=== PATIENT | female | born 1975 | race Caucasian/White ===

== ENCOUNTER 2020-08-16 16:01 | Emergency (ER) | payer OTHER, SELFPAY ==
[2020-08-16 16:17] VITALS: BP 113/64; PULSE 79; RESP 20; TEMP 36.8; O2SAT 97
[2020-08-16 16:55] LABS: INR 1.1 (0.9-1.3); Prothrombin Time 12.1 SECONDS (10.1-12.7)
[2020-08-16 16:57] LABS: Add Manual Diff / Slide Review NO; Basophils Absolute Auto 0 /uL (0-100); Basophils Percent Auto 0.6 % (0-2); Eosinophils Absolute Auto 0 /uL (0-450); Eosinophils Percent Auto 0.5 % (2-4); Hemoglobin 13.5 g/dL (12.0-16.0); Lymphocytes Absolute Auto 1400 /uL (1100-4500); Lymphocytes Percent Auto 24.8 % (25-40); Mean Corpuscular HGB Conc 33.7 % (30-36); Mean Corpuscular Hemoglobin 29.9 PG (26-34); Mean Corpuscular Volume 88.9 fL (80-100); Monocytes Absolute Auto 300 /uL (0-900); Monocytes Percent Auto 4.7 % (3-14); Neutrophils Absolute Auto 3900 /uL (1500-7000); Neutrophils Percent Auto 69.4 % (50-75); PTT Partial Thromboplastin Tim 31 SECONDS (26.4-36.2); Platelet Count 265 X10^3/uL (150-400); Red Cell Distribution Width 12.9 % (11.6-14.8); White Blood Cell Count 5.7 X10^3/uL (4.5-11.0)
[2020-08-16 17:01] LABS: Alanine Aminotransferase 13 IU/L (<35); Albumin 4.4 g/dL (3.5-5.0); Albumin Globulin Ratio 1.8 (1.0-2.8); Alkaline Phosphatase 40 U/L (38-126); Aspartate Aminotransferase 21 IU/L (14-36); BUN Creatinine Ratio 11.3 (6-22); Bilirubin Total 0.9 mg/dL (0.2-1.3); Blood Urea Nitrogen 8 mg/dL (7-17); Calcium 9.4 mg/dL (8.4-10.2); Carbon Dioxide 27 mmol/L (22-32); Chloride 106 mmol/L (98-107); Estimated Glomerular Filt Rate > 60.0 mL/min (>60); Globulin 2.4 g/dL (1.7-4.1); Glucose 108 mg/dL (70-100); HEMOLYSIS < 15 (0-50); Lipase 57 U/L (23-300); Potassium 3.8 mmol/L (3.4-5.1); Sodium 136 mmol/L (137-145); Total Protein 6.8 g/dL (6.3-8.2)
[2020-08-16 17:59] VITALS: BP 101/57; PULSE 66; RESP 18; O2SAT 100
--- NOTE | 2020-08-16 19:27 | ED.ABDPAIN ---
HPI - Abdominal Pain General Chief Complaint: Abdominal Pain Stated Complaint: Lump On Lower Ribs, Upper Abd Pain, Nausea 2wks Time Seen by Provider: 08/16/20 18:02 Source: patient Mode of arrival: Ambulatory Limitations: no limitations History of Present Illness HPI narrative: 45-year-old female former smoker with history of reflux presents with a chief complaint of about 2 weeks of epigastric pain with radiation to her back. She states her pain is achy and crampy in nature and seems to be made worse by eating and drinking. She has nausea but denies any vomiting. She has had no fever chills and denies any jaundice. She has had no recent travel or injury. Patient is not dizzy nor weak or lightheaded. She has had no change in bowel habits. She denies dysuria, frequency or urgency. She has discussed her symptoms with her PCP and was directed to the ED, and suggested she wanted her to get a CT. Patient states the symptoms are quite similar to an episode she had a few years ago in which she was told she had ulcers. She had been taking antacids but stopped taking them sometime ago MD complaint: abdominal pain Onset (ago): week(s) Pain Consistency: intermittent Location: epigastric Severity: moderate Quality: cramping and aching Radiation: back Exacerbating factors: eating and movement Associated symptoms: nausea Related Data Previous Rx's Medication Instructions Recorded pantoprazole [Protonix] 40 mg PO DAILY #30 tab 08/16/20 Allergies Allergy/AdvReac Type Severity Reaction Status Date / Time lanolin [LANOLIN] Allergy Unknown Unverified 09/11/17 12:24 latex [LATEX] Allergy Unknown Unverified 09/11/17 12:24 Review of Systems Constitutional Constitutional: Denies chills, Denies fatigue, Denies fever(s), Denies frequent falls, Denies lethargy and Denies weakness Eyes Eyes: Denies change in vision, Denies eye discharge, Denies irritation and Denies loss of vision ENT Ears, Nose, Mouth, and Throat: Denies change in voice, Denies dizziness, Denies neck pain, Denies sore throat and Denies throat swelling Cardiovascular Cardiovascular: Denies chest pain, Denies irregular heart rhythm, Denies lightheadedness, Denies palpitations, Denies dyspnea, Denies dyspnea on exertion and Denies orthopnea Respiratory Respiratory: Denies cough, Denies dyspnea, Denies dyspnea on exertion and Denies wheezing Gastrointestinal Gastrointestinal: Reports abdominal pain, Denies change in bowel habits, Denies diarrhea, Reports nausea and Denies vomiting Musculoskeletal Musculoskeletal: Denies neck pain and Denies numbness Integumentary/Breasts Skin/Breast: Denies pruritus, Denies erythema, Denies rash and Denies wounds Neurologic Neurologic: Denies behavioral changes, Denies confusion, Denies dizziness, Denies frequent falls, Denies loss of vision, Denies numbness and Denies weakness Psychiatric Psychiatric: Denies anxiety, Denies behavioral changes, Denies confusion, Denies depression, Denies homicidal ideation and Denies suicidal ideation Endocrine Endocrine: Denies fatigue, Denies flushing and Denies palpitations Hematologic/Lymphatic Hematologic/Lymphatic: Denies easy bruising Allergic/Immunologic Allergic/Immunologic: Denies urticaria, Denies throat swelling and Denies wheezing Patient History Social History Smoking Status: Former smoker Smoking Status: Former smoker alcohol intake frequency: holidays/special occasions only Exam Narrative Exam Narrative: GENERAL: [45] year old patient appears stated age. Well-nourished, well-developed patient, in mild distress. Rubbing her abdomen HEAD: Atraumatic. Normocephalic. EYES: Pupils equal round and reactive. Extraocular motions intact. No scleral icterus. No injection or drainage. ENT: Nose without bleeding, purulent drainage. Throat without erythema, tonsillar hypertrophy or exudate. Airway patent. NECK: Trachea midline. Non tender CARDIOVASCULAR: Regular rate and rhythm without murmurs, gallops, or rubs. RESPIRATORY: Clear to auscultation. Breath sounds equal bilaterally. No wheezes, rales, or rhonchi. GASTROINTESTINAL: Abdomen soft, mildly tender in the epigastrium without rebound, nondistended. Bowel sounds present in all 4 quadrants EXTREMITIES: No edema or joint tenderness. BACK: Nontender without deformity or crepitance. No flank tenderness. NEURO: AOx3. SKIN: No rash or erythema of visible areas Initial Vital Signs Initial Vital Signs: Vital Signs Temperature 98.2 F 08/16/20 16:17 Pulse Rate 79 08/16/20 16:17 Respiratory Rate 20 08/16/20 16:17 Blood Pressure 113/64 08/16/20 16:17 Pulse Oximetry 97 08/16/20 16:17 Course Orders Ordered: ED Orders 08/16/20 16:21 EKG-12 Lead Stat 08/16/20 16:35 Complete Blood Count AUTO DIFF Stat Comprehensive Metabolic Panel Stat Lipase Stat Partial Thromboplastin Time Stat Prothrombin Time INR Stat 08/16/20 19:29 US abdomen limited Stat 08/16/20 20:38 CT abdomen pelvis w con Stat Discontinued Medications Al Hydrox/Mg Hydrox/Simethicone 20 ml/ Lidocaine HCl 15 ml 0 ml PO NOW ONE Stop: 08/16/20 19:58 Last Admin: 08/16/20 20:43 Dose: 35 ml Documented by: JERRI Pantoprazole Sodium (Pantoprazole 40 Mg Vial) 40 mg IV NOW ONE Stop: 08/16/20 19:58 Last Admin: 08/16/20 20:42 Dose: 40 mg Documented by: JERRI Reevaluation(s) Reevaluation #1: Patient has moderate improvement with above-stated therapies Vital Signs Vital signs: Vital Signs - 8 hr 08/16/20 16:17 08/16/20 17:59 08/16/20 20:18 Temperature 98.2 F Pulse Rate 79 66 66 Respiratory Rate 20 18 20 Blood Pressure 113/64 101/57 L 115/66 Pulse Oximetry 97 100 99 08/16/20 21:42 Temperature Pulse Rate 64 Respiratory Rate 16 Blood Pressure 104/65 Pulse Oximetry 100 MDM - Abdominal Pain Lab Data Result diagrams: 08/16/20 16:35 08/16/20 16:35 Labs: Lab Results 08/16/20 08/16/20 08/16/20 Range/Units 16:35 16:35 16:35 WBC 5.7 (4.5-11.0) X10^3/uL RBC 4.50 (4.0-5.2) X10^6/uL Hgb 13.5 (12.0-16.0) g/dL Hct 40.0 (36-46) % MCV 88.9 (80-100) fL MCH 29.9 (26-34) PG MCHC 33.7 (30-36) % RDW 12.9 (11.6-14.8) % Plt Count 265 (150-400) X10^3/uL Neut % (Auto) 69.4 (50-75) % Lymph % (Auto) 24.8 L (25-40) % Steele % (Auto) 4.7 (3-14) % Eos % (Auto) 0.5 L (2-4) % Baso % (Auto) 0.6 (0-2) % Neut # (Auto) 3900 (6459-3406) /uL Lymph # (Auto) 1400 (5898-3838) /uL Steele # (Auto) 300 (0-900) /uL Eos # (Auto) 0 (0-450) /uL Baso # (Auto) 0 (0-100) /uL PT 12.1 (10.1-12.7) SECONDS INR 1.1 (0.9-1.3) APTT 31 (26.4-36.2) SECONDS Sodium 136 L (137-145) mmol/L Potassium 3.8 (3.4-5.1) mmol/L Chloride 106 (98-107) mmol/L Carbon Dioxide 27 (22-32) mmol/L BUN 8 (7-17) mg/dL Creatinine 0.71 (0.52-1.04) mg/dL Estimated GFR > 60.0 (>60) mL/min BUN/Creatinine Ratio 11.3 (6-22) Glucose 108 H (70-100) mg/dL Calcium 9.4 (8.4-10.2) mg/dL Total Bilirubin 0.9 (0.2-1.3) mg/dL AST 21 (14-36) IU/L ALT 13 (<35) IU/L Alkaline Phosphatase 40 (38-126) U/L Total Protein 6.8 (6.3-8.2) g/dL Albumin 4.4 (3.5-5.0) g/dL Globulin 2.4 (1.7-4.1) g/dL Albumin/Globulin Ratio 1.8 (1.0-2.8) Lipase 57 (23-300) U/L Point of care testing: Point of Care Testing Test Results Negative Urine Dip Bedside Urine Glucose Negative Bedside Urine Bilirubin - Negative Bedside Urine Ketone - Negative Urine Specific Franklin 1.005 Bedside Urine Occult Blood - Negative Bedside Urine pH 6.0 Bedside Urine Protein - Negative Bedside Urine Urobilinogen - Negative Bedside Urine Nitrite - Negative Bedside Urine Leukocytes - Negative Esterase Imaging Data CT scan - abdomen/pelvis: Radiologist's Impression: [address] [id number] Scan ReportSigned Patient: Cm Mittal [facility]#: [id number]: 1975Acct:[id number]/Sex: 45 / FDate of Service: 08/16/20Loc: EDAccession Number: [id number] Procedure: CT abdomen pelvis w con Ordering Provider: Severino Lamb D.O. PROCEDURE: CT ABDOMEN PELVIS W CON INDICATIONS: severe upper abdominal pain TECHNIQUE: After the administration of intravenous contrast, 5 mm thick sections acquired from the diaphragm to the symphysis. 5 mm coronal and sagittal reformats were acquired. For radiation dose reduction, the following was used: automated exposure control, adjustment of mA and/or kV according to patient size. COMPARISON: [facility], US, US PELVIC COMPLETE WITH TRANSVAGINAL, 07/29/2019, 7:14. [facility], US, US ABDOMEN LIMITED, 08/16/2020, 19:40. FINDINGS: Image quality: Excellent. ABDOMEN: Lung bases: Right lower lobe scars and atelectasis. Heart size is normal. Solid organs: Liver is normal in size and enhancement. Gallbladder is normal. Biliary system is non dilated. There is a calcific focus in the pancreatic body, likely sequelae of chronic pancreatitis. Pancreas enhances normally. Spleen is normal in size and enhancement. No adrenal nodules. There is left adrenal thickening. Kidneys demonstrate normal size and enhancement, without hydronephrosis. Peritoneum and bowel: Bowel loops demonstrate normal wall thickness and caliber. Normal appendix. Moderate amount of stool in colon. No free fluid or air. Nodes and vessels: No retroperitoneal or mesenteric adenopathy by size criteria. Aorta and inferior vena cava are normal in size. Miscellaneous: No ventral hernias. PELVIS: Genitourinary: Bladder wall thickness is normal. There is an IUD in uterus. There is a 2.3 cm left ovarian cyst, most likely a dominant follicle. No pathological free-fluid in pelvis. Miscellaneous: No inguinal hernias or adenopathy. Bones: No suspicious bony lesions. No vertebral body compression fractures. Sclerotic focus in the inferior endplate of T10 is most likely secondary to degenerative disc disease. Probable old sacral fracture. IMPRESSION: 1. No acute abnormalities in abdomen or pelvis. 2. A calcific density in pancreatic body suspicious for chronic pancreatitis. 3. Right basilar scars and atelectasis. Dictated by: Zoë Vizcaino M.D. on 08/16/2020 at 21:31 Approved by: Zoë Vizcaino M.D. on 08/16/2020 at 21:41 US - abdomen: Radiologist's Impression: [address] [id number] ReportSigned Patient: Cm Mittal MMR#: [id number]: 1975Acct:[id number]/Sex: 45 / FDate of Service: 08/16/20Loc: EDAccession Number: [id number] Procedure: US abdomen limited Ordering Provider: Severino Lamb D.O. PROCEDURE: US ABDOMEN LIMITED INDICATIONS: EPIGASTRIC PAIN RADIATING TO BACK TECHNIQUE: Real-time focused scanning was performed of the abdomen, with image documentation. COMPARISON: None. FINDINGS: Gallbladder is normal. No gallstones. No gallbladder wall thickening, pericholecystic fluid or sonographic Branch's sign. Visualized liver and pancreas are normal. Common bile duct is normal in caliber measuring 3.4 cm. IMPRESSION: Normal limited abdominal ultrasound exam. A cause for epigastric pain is not identified. Dictated by: Zoë Vizcaino M.D. on 08/16/2020 at 20:08 Approved by: Zoë Vizcaino M.D. on 08/16/2020 at 20:09 [facility] Narrative Medical decision making narrative: Multiple etiologies for patient's symptoms considered including: [Gallbladder disease versus pancreatitis versus peptic ulcer disease versus AAA versus other] Patient's symptoms improved over duration of stay with above-stated therapies. Findings and discharge diagnosis discussed with patient/family followed by verbalization of understanding Return precautions discussed with patient/family whom verbalize understanding. Discharge Plan Departure Patient Disposition: Home Clinical Impression: Acute epigastric pain Instructions: DI for Dyspepsia Activity Restrictions/Additional Instructions: *You have been diagnosed with [epigastric pain, likely from dyspepsia or ulcer disease. Your ultrasound, CT scan and lab work are very reassuring] *What to do: *Take medications as directed *Follow up with your primary care provider in 2-3 days, call for an appointment. Let them know you were seen in the Emergency Department and that we ask that you be seen in follow up *Return to ER if you should have any new, worsening or concerning symptoms *Please consider clear liquids for the next 24-48 hours and then advance as tolerated. Avoid caffeine, alcohol, nicotine, spicy and fatty foods. Prescriptions: New pantoprazole [Protonix] 40 mg tablet,delayed release (DR/EC) 40 mg PO DAILY Qty: 30 RF: 0 Referrals: Lilo Brown PA-C [Primary Care Provider] -
[2020-08-16 20:18] VITALS: BP 115/66; PULSE 66; RESP 20; O2SAT 99
--- NOTE | 2020-08-16 20:38 | DI.CT.S_ITS ---
PROCEDURE: CT ABDOMEN PELVIS W CON INDICATIONS: severe upper abdominal pain TECHNIQUE: After the administration of intravenous contrast, 5 mm thick sections acquired from the diaphragm to the symphysis. 5 mm coronal and sagittal reformats were acquired. For radiation dose reduction, the following was used: automated exposure control, adjustment of mA and/or kV according to patient size. COMPARISON: [facility], US, US PELVIC COMPLETE WITH TRANSVAGINAL, 07/29/2019, 7:14. [facility], US, US ABDOMEN LIMITED, 08/16/2020, 19:40. FINDINGS: Image quality: Excellent. ABDOMEN: Lung bases: Right lower lobe scars and atelectasis. Heart size is normal. Solid organs: Liver is normal in size and enhancement. Gallbladder is normal. Biliary system is non dilated. There is a calcific focus in the pancreatic body, likely sequelae of chronic pancreatitis. Pancreas enhances normally. Spleen is normal in size and enhancement. No adrenal nodules. There is left adrenal thickening. Kidneys demonstrate normal size and enhancement, without hydronephrosis. Peritoneum and bowel: Bowel loops demonstrate normal wall thickness and caliber. Normal appendix. Moderate amount of stool in colon. No free fluid or air. Nodes and vessels: No retroperitoneal or mesenteric adenopathy by size criteria. Aorta and inferior vena cava are normal in size. Miscellaneous: No ventral hernias. PELVIS: Genitourinary: Bladder wall thickness is normal. There is an IUD in uterus. There is a 2.3 cm left ovarian cyst, most likely a dominant follicle. No pathological free-fluid in pelvis. Miscellaneous: No inguinal hernias or adenopathy. Bones: No suspicious bony lesions. No vertebral body compression fractures. Sclerotic focus in the inferior endplate of T10 is most likely secondary to degenerative disc disease. Probable old sacral fracture. IMPRESSION: 1. No acute abnormalities in abdomen or pelvis. 2. A calcific density in pancreatic body suspicious for chronic pancreatitis. 3. Right basilar scars and atelectasis. Dictated by: Zoë Vizcaino M.D. on 08/16/2020 at 21:31 Approved by: Zoë Vizcaino M.D. on 08/16/2020 at 21:41
[2020-08-16] MEDS: PANTOPRAZOLE 40 MG VIAL IV (20:42)
[2020-08-16] MEDS: MAG HYDROX/ALUMINUM/SIMETH SUS 20 ML, LIDOCAINE VISCOUS 2% 15 ML PO (20:43)
[2020-08-16 21:42] VITALS: BP 104/65; PULSE 64; RESP 16; O2SAT 100
== END 2020-08-16 21:42 | disposition home or self-care (01) ==
PROVIDERS: Emergency Medicine; Emergency Provider Emergency Medicine; PCP Physician Assistant
DX: R10.13 Epigastric pain (principal); R11.0 Nausea
CPT/HCPCS: 36415; 74177; 76705; 80053; 81003; 81025; 83690; 85025; 85610; 85730; 93005; 93010; 96374; 99284; 99285; C9113; Q9967

== ENCOUNTER → 2021-01-26 14:35 | Outpatient (CLI) | payer OTHER, SELFPAY ==
[2021-01-26 16:05] LABS: COVID19 -Nasal RAPID Negative (Negative)
== END ==
PROVIDERS: PCP Physician Assistant; Visit Provider Nurse Practitioner
DX: Z20.822 Contact with and (suspected) exposure to COVID-19 (principal)
CPT/HCPCS: 87635